=== PATIENT | female | born 2000 | race Caucasian/White ===

== ENCOUNTER 2020-09-10 08:47 | Emergency (ER) | payer OTHER, SELFPAY ==
[2020-09-10 09:10] VITALS: BP 127/75; PULSE 110; RESP 16; TEMP 36.6; O2SAT 97; BMI 43.4
--- NOTE | 2020-09-10 09:29 | ED.GENADULT ---
HPI - General Adult General Chief complaint: General Medical Stated complaint: wants test Time Seen by Provider: 09/10/20 09:11 Source: patient Mode of arrival: ambulatory History of Present Illness HPI narrative: 20 y.o. F with PMH of bipolar disorder, obesity, substance use, presenting to the ED with nausea. Nausea began last night. Eating or drinking does not affect her nausea. No vomiting with this. She is requesting a test because her last period was in June. She is sexually active. SHe has seen her [facility] prior to her period. She has not had one in two months, no vaginal bleeding or spotting. She denies chance of STD, no vaginal discharge that is copious or malodorous. She also notes increased urinary frequency, increased thrist. States she was supposed to be checked for diabetes but because of COVID she has been unable to get in with her primary care doctor. SHe has rhinorrhea when she is outside. She denies fevers, cough, CP, SOB, abd pain, vomiting, diarrhea. Is passing gas. Onset (ago): day(s) (1) Treatments prior to arrival: none Related Data Previous Rx's Medication Instructions Recorded ondansetron 4 mg PO TID PRN 3 Days #9 tab 09/10/20 Allergies Allergy/AdvReac Type Severity Reaction Status Date / Time sulfamethoxazole Allergy Intermediate HIVES WITH Verified 09/10/20 09:15 [From BACTRIM] HANDS AND FEET SWELLING trimethoprim [From BACTRIM] Allergy Intermediate HIVES WITH Verified 09/10/20 09:15 HANDS AND FEET SWELLING Sulfa (Sulfonamide Allergy Unknown Unknown Verified 09/10/20 09:15 Antibiotics) Review of Systems Constitutional: Constitutional: Denies fever(s) and Denies headache(s) Eyes: Eyes: Reports no additional eye complaints ENT: Denies headache(s) Cardiovascular: Cardiovascular: Denies chest pain and Denies dyspnea Respiratory: Respiratory: Denies dyspnea Gastrointestinal: Gastrointestinal: Denies abdominal pain, Denies diarrhea, Reports nausea and Denies vomiting Genitourinary: Genitourinary: Denies dysuria and Denies vaginal discharge Comments: urinary frequency Musculoskeletal: Musculoskeletal: Reports no additional musculoskeletal complaints Integumentary/Breasts: Skin/Breast: Denies rash Neurologic: Denies headache(s) Hematologic/Lymphatic: Hematologic/Lymphatic: Denies easy bleeding Allergic/Immunologic: Allergic/Immunologic: Reports no additional allergic/immunologic complaints PMFSH Past Medical History Medical History Bipolar 1 disorder Depression Obesity PUD (peptic ulcer disease) Substance abuse TMJ (temporomandibular joint disorder) Social History Social History (Updated 09/10/20 @ 09:35 by MYRA Robins) Substance Use Type Other:: hx of substance abuse Advance Directives: No Advance Directives Information Provided: Yes Physical Exam Vital Signs: Vital Signs: Last Vital Signs Temp 98 F 09/10/20 09:10 Pulse 110 H 09/10/20 09:10 Resp 16 09/10/20 09:10 BP 127/75 09/10/20 09:10 Pulse Ox 97 09/10/20 09:10 Body Mass Index 43.4 Const: Other: anxious General: cooperative Orientation/consciousness: patient oriented x3 HENMT: Head: Yes atraumatic Eyes: Pupils: Equal, round and reactive pupils present Neck: Neck: Yes supple Resp: Effort & Inspection: normal respiratory effort Auscultation: clear to auscultation bilaterally Cardio: Rate: regular rate Rhythm: regular rhythm GI: Other: obese Inspection: No distended Palpation (GI): Soft to palpation and nontender : General: Yes deferred Back/Spine/Pelvis: Other: normal ROM Skin: Other: warm Neuro: Other: ambulatory with steady gait General: patient oriented x3 Cranial nerves: Yes Equal, round and reactive pupils present Extrem: General: Yes full ROM Psych: Attitude: cooperative Course Course Course Narrative: No acute vomiting while in the ED. Glucose WNL. UA is negative for infection, negative. Will give [facility] follow up to discuss her amenorrhea. Will dc home with donna. Return precautions provided. Medical Decision Making MDM Narrative Medical decision making narrative: 20 y.o. F presenting to the ED for concerns of nausea that started last night, LMP 2 months ago concerned for possible . Also is concerned she is a diabetic having increased thrist and urination. VS significant for HR 110, not toxic appearing, hemodynamically stable Will plan for UA, check level. Will evaluate glucose POC. Her abdomen is soft, nontender, not peritonitic lower suspicion for intraabdominal process. NO relation to food, lower suspicion for cholecystitis. No focal RLQ tenderness to suggest acute appendicitis. No URI symptoms to suggest viral etiology. She denies pelvic complaints, will defer pelvic exam. HR elevated most likely due to her anxious state. NO signs of bacterial infection. Lab Data Labs: Lab Results 09/10/20 09/10/20 Range/Units 09:53 09:57 POC Glucose 100 (60-115) mg/dL Urine Color YELLOW Urine Appearance HAZY Urine pH 7.0 (5.0-8.0) Ur Specific [place] 1.025 (1.005-1.025) Urine Protein NEG (NEG-TRACE) MG/DL Urine Glucose (UA) NEG (NEG) MG/DL Urine Ketones NEG (NEG) MG/DL Urine Blood NEG (NEG) Urine Nitrite NEG (NEG) Ur Leukocyte Esterase NEG (NEG) Urine RBC 0-2 (0) /HPF Urine WBC 0-2 (0-4) /HPF Ur Squamous Epith Cells 1+ /LPF Urine Bacteria TRACE /LPF Urine Test NEGATIVE (NEGATIVE) Discharge Plan Discharge Patient Disposition: Home, Self-Care Instructions: Acute Nausea and Vomiting (ED) Additional Instructions: Please call the [facility] office to make an appointment to discuss your irregular menstrual period. Please return to the emergency department if your symptom worsen, increased nausea, vomiting, abdominal pain, pelvic pain, vaginal symptoms, fevers, dizziness, or any other concerning symptoms. Drink plenty of fluids to keep yourself hydrated. Prescriptions: New ondansetron 4 mg tablet,disintegrating 4 mg PO TID PRN (Reason: nausea and vomiting) 3 Days Qty: 9 RF: 0 Referrals: Chantal Engle MD [Physician] - 1 week (call to schedule an appointment to discuss your irregular bleeding )
[2020-09-10 10:08] LABS: Glucose, Whole Blood 100 mg/dL (60-115)
[2020-09-10 10:09] LABS: Glucose Urine UA NEG (NEG); Leukocyte Esterase Urine NEG (NEG); Nitrite Urine NEG (NEG); Specific Gravity - Urine 1.025 (1.005-1.025); Urine Blood NEG (NEG); Urine Ketones NEG (NEG); Urine Protein NEG (NEG-TRACE)
[2020-09-10 10:13] LABS: Appearance Urine HAZY; Color Urine YELLOW
[2020-09-10 10:14] LABS: UPreg QC Valid YES; Urine Pregnancy NEGATIVE (NEGATIVE)
[2020-09-10 10:20] LABS: Bacteria Urine TRACE /LPF; RBC Urine 0-2 /HPF (0); Squamous Epithelial Cell Urine 1+ /LPF; WBC Urine 0-2 /HPF (0-4)
--- NOTE | 2020-09-10 10:39 | PC.NURSE ---
no further c/o nausea after zofran
== END 2020-09-10 10:39 | disposition home or self-care (01) ==
PROVIDERS: Physician Assistant Medical; Emergency Provider Emergency Medicine
DX: R11.2 Nausea with vomiting, unspecified (principal); Z32.02 Encounter for pregnancy test, result negative
CPT/HCPCS: 81001; 81025; 82947; 99283

== ENCOUNTER 2020-09-17 13:10 | Emergency (ER) | payer OTHER, SELFPAY ==
--- NOTE | 2020-09-17 | XR_ITS ---
EXAMINATION: XR RIBS, LEFT CLINICAL INFORMATION: Status post fall, rib pain COMPARISON: Chest radiograph from 12/05/2018 TECHNIQUE: Frontal view of the chest and 3 views of the left ribs were obtained FINDINGS: There is no focal consolidation. There is no pneumothorax. The trachea is midline. The cardiac mediastinal silhouette is not enlarged. There is no pleural effusion. Osseous structures are unremarkable. Ribs are intact. No fractures are identified. XR/XR ribs LT min 3V w CXR1V IMPRESSION: 1. No acute cardiopulmonary process. 2. No acute visualized left-sided rib fractures.
--- NOTE | 2020-09-17 | XR_ITS ---
EXAMINATION: XR ANKLE, RIGHT CLINICAL INFORMATION: Status post fall, pain COMPARISON: Right ankle radiograph from 01/27/2020 TECHNIQUE: AP, lateral, and mortise views of the right ankle. FINDINGS: There is no acute visible fracture or dislocation. Ankle mortise is symmetric. Joint spaces and alignment are maintained. No large ankle joint effusion. Soft tissues are unremarkable. XR/XR ankle RT 2V IMPRESSION: No acute visible fracture or dislocation.
[2020-09-17 13:37] VITALS: BP 128/81; PULSE 87; RESP 18; TEMP 36.7; O2SAT 99; BMI 45.3
[2020-09-17] MEDS: Ibuprofen 600 MG TABLET PO (13:42)
--- NOTE | 2020-09-17 14:25 | ED.FALL ---
HPI - Fall General Chief Complaint: Fall Stated Complaint: fell hurt ribs Time Seen by Provider: 09/17/20 14:24 Source: patient Mode of arrival: ambulatory Limitations: no limitations History of Present Illness HPI Narrative: 20-year-old female here with a slip and fall in the bathtub hitting her left ribs on the top. Denies hitting her head or loss of consciousness. She tells me she had inversion injury to her right ankle when she fell. Pain now with weight-bearing. complaint: fall Onset (ago): hour(s) Fall from: standing Fall witnessed: no Place fall occurred: home Loss of consciousness: none Prolonged down time: no Symptoms prior to fall: none Context: tripped/slipped Location of injury: chest Location of injury - extremities: right: ankle Severity: mild Associated symptoms (after fall): denies Related Data Previous Rx's Medication Instructions Recorded ondansetron 4 mg PO TID PRN 3 Days #9 tab 09/10/20 ibuprofen 600 mg PO Q8H PRN #20 tab 09/17/20 lidocaine [Lidoderm] 1 patch TOPICAL DAILY #15 ea 09/17/20 Allergies Allergy/AdvReac Type Severity Reaction Status Date / Time sulfamethoxazole Allergy Intermediate HIVES WITH Verified 09/10/20 09:15 [From BACTRIM] HANDS AND FEET SWELLING trimethoprim [From BACTRIM] Allergy Intermediate HIVES WITH Verified 09/10/20 09:15 HANDS AND FEET SWELLING Sulfa (Sulfonamide Allergy Unknown Unknown Verified 09/10/20 09:15 Antibiotics) Review of Systems Review of Systems: Yes all other systems are reviewed and are negative Constitutional: Constitutional: Reports no additional constitutional complaints, Denies body ache(s), Denies chills, Denies fever(s), Denies headache(s) and Denies weakness Eyes: Eyes: Reports no additional eye complaints and Denies change in vision ENT: Reports system reviewed and no additional complaints, except as documented, Denies dizziness, Denies headache(s), Denies nasal congestion, Denies nasal discharge and Denies neck pain Cardiovascular: Cardiovascular: Reports no additional cardiovascular complaints, Denies chest pain, Denies leg edema and Denies dyspnea Comments: Chest wall pain Respiratory: Respiratory: Reports no additional respiratory complaints, Denies cough and Denies dyspnea Gastrointestinal: Gastrointestinal: Reports no additional gastrointestinal complaints, Denies abdominal pain, Denies diarrhea, Denies nausea and Denies vomiting Genitourinary: Genitourinary: Reports no additional female genitourinary complaints and Denies urinary incontinence Musculoskeletal: Musculoskeletal: Reports arthralgias, Reports joint swelling, Denies neck pain, Denies numbness and Denies tingling Integumentary/Breasts: Skin/Breast: Reports system reviewed and no additional complaints, except as docu and Denies rash Neurologic: Reports system reviewed and no additional complaints, except as documented, Denies Abnormal speech present, Denies dizziness, Denies headache(s), Denies numbness, Denies tingling and Denies weakness PMFSH Past Medical History Attestation statement: The following information was validated with the patient. Source: old records reviewed and nursing notes reviewed Medical History Bipolar 1 disorder Depression Obesity PUD (peptic ulcer disease) Substance abuse TMJ (temporomandibular joint disorder) Social History Social History Advance Directives: No Advance Directives Information Provided: No Physical Exam Vital Signs: Vital Signs: Last Vital Signs Temp 98.0 F 09/17/20 13:37 Pulse 87 09/17/20 13:37 Resp 18 09/17/20 13:37 BP 128/81 09/17/20 13:37 Pulse Ox 99 09/17/20 13:37 Body Mass Index 45.3 Const: General: cooperative, healthy appearing, comfortable and no acute distress Orientation/consciousness: patient oriented x3 Limitations: no limitations HENMT: Head: Yes normal to inspection Ears: hearing grossly normal bilaterally General nose exam: Normal external nose present Face and sinus: Yes normal facial exam Mouth: Normal oral and palatal mucosa present Throat: Yes posterior oropharynx normal Eyes: General: appearance normal, both eyes and all related structures Pupils: Equal, round and reactive pupils present Neck: Neck: Yes normal visual inspection Chest: Other: Left chest lateral wall has some mild tenderness. There is no crepitus or ecchymosis. Chest palpation & inspection: normal inspection of the chest Resp: Effort & Inspection: normal respiratory effort Auscultation: clear to auscultation bilaterally Cardio: Rate: regular rate Rhythm: regular rhythm Peripheral pulses: Peripheral pulses 2+ throughout GI: Inspection: Yes normal to inspection Palpation (GI): Soft to palpation and nontender Auscultation: normal bowel sounds Back/Spine/Pelvis: Thoracic/Lumbar Spine: thoracic and lumbar spine normal to inspection Skin: General skin exam: no rashes or lesions noted Neuro: General: patient oriented x3, no focal motor deficits and normal sensation to monofilament Cranial nerves: Yes Equal, round and reactive pupils present Cognition (Neuro): normal cognition Speech: No Abnormal speech present Gait exam (Neuro): Normal gait present Motor exam (neuro): 5/5 motor strength present throughout Extrem: Other: Mild tenderness the right lateral ankle. Mild swelling. No ecchymosis. Full range of motion. Neurovascularly intact distally. No ligamental laxity General: Yes normal to inspection Course Course Course Narrative: 20-year-old female here with left-sided chest wall pain and right ankle pain status post mechanical fall. Imaging done which shows no bony abnormalities. Likely contusion and ankle sprain. Patient was placed in an Aircast and given crutches for ambulation. Reviewed worrisome signs and symptoms and when to return to the emergency department. Comfortable discharge home. Procedures Orthopedic Splinting/Casting Injury #1: Side: right Lower Extremity Injury Location: ankle Lower Extremity Immobilizer: AirCast Other Orthopedic Equipment: crutches MDM - Fall Medical Records Attestation: I reviewed the patient's medical records. Lab Data Attestation: I reviewed the patient's lab results. Imaging Data Right ankle x-ray: Attestation: I personally reviewed and interpreted this imaging study as follows: Radiologist's impression: No bony abnormality Chest x-ray: Attestation: I personally reviewed and interpreted this imaging study as follows: Radiologist's impression: No bony abnormality, rib fractures, pneumothorax Discharge Plan Discharge Clinical Impression: Sprain Contusion Qualifiers: Encounter type: initial encounter Contusion area: thoracic wall Thoracic wall location detail: left Patient Disposition: Home, Self-Care Instructions: Ankle Sprain (ED), Contusion in Adults (ED) Additional Instructions: Air cast and crutches for weight-bearing Apply ice, elevate Prescriptions: New lidocaine [Lidoderm] 5 % adhesive patch,medicated 1 patch topical DAILY Qty: 15 RF: 0 ibuprofen 600 mg tablet 600 mg PO Q8H PRN (Reason: pain) Qty: 20 RF: 0 No Action ondansetron 4 mg tablet,disintegrating 4 mg PO TID PRN (Reason: nausea and vomiting) 3 Days Qty: 9 RF: 0 Referrals: Physician,Unknown [Primary Care Provider] - 2 days Interventions: ED Discharge Assessment Last Done: 09/17/20 15:16 Discharge Date/Time: 09/17/20 15:16
== END 2020-09-17 15:16 | disposition home or self-care (01) ==
PROVIDERS: Emergency Provider Internal Medicine
DX: S93.401A Sprain of unspecified ligament of right ankle, initial encounter (principal); S20.212A Contusion of left front wall of thorax, initial encounter; W16.212A Fall in (into) filled bathtub causing other injury, initial encounter; F19.10 Other psychoactive substance abuse, uncomplicated; E66.9 Obesity, unspecified; Y93.E1 Activity, personal bathing and showering; Y92.012 Bathroom of single-family (private) house as the place of occurrence of the external cause; Y99.9 Unspecified external cause status
CPT/HCPCS: 71101; 73600; 99283

== ENCOUNTER 2021-02-07 19:08 | Inpatient (IN) | payer OTHER, SELFPAY ==
[2021-02-07 19:23] VITALS: BP 131/58; PULSE 118; RESP 22; TEMP 37.5; O2SAT 97; BMI 47.2
--- NOTE | 2021-02-07 19:59 | ED_ITS ---
HPI - Anxiety General Chief Complaint: Anxiety Stated Complaint: SI, ANXIETY Time Seen by Provider: 02/08/21 01:46 Source: patient Mode of arrival: ambulatory Limitations: no limitations History of Present Illness HPI narrative: Patient presents to the ED for severe anxiety. Patient states no relief with Atarax. Patient states she cannot get in touch with her psychiatrist and psychiatry not given any more meds for anxiety. Patient states not able to function because of anxiety. Patient is not suicidal homicidal. complaint: anxiety Related Data Home Medications Medication Instructions Recorded Confirmed gabapentin 1 cap PO TID PRN 02/07/21 02/07/21 hydroxyzine HCl 1 tab PO DAILY PRN 02/07/21 02/07/21 oxcarbazepine 1 tab PO BID 02/07/21 02/07/21 quetiapine 1 tab PO BEDTIME 02/07/21 02/07/21 Allergies Allergy/AdvReac Type Severity Reaction Status Date / Time sulfamethoxazole Allergy Intermediate HIVES WITH Verified 09/10/20 09:15 [From BACTRIM] HANDS AND FEET SWELLING trimethoprim [From BACTRIM] Allergy Intermediate HIVES WITH Verified 09/10/20 09:15 HANDS AND FEET SWELLING Sulfa (Sulfonamide Allergy Unknown Hives Verified 02/07/21 19:48 Antibiotics) Review of Systems Review of Systems: Yes all other systems are reviewed and are negative Constitutional: Constitutional: Reports as per HPI and Reports no additional constitutional complaints Eyes: Eyes: Reports as per HPI and Reports no additional eye complaints ENT: Reports system reviewed and no additional complaints, except as documented and Reports as per HPI Cardiovascular: Cardiovascular: Reports as per HPI and Reports no additional cardiovascular complaints Respiratory: Respiratory: Reports as per HPI and Reports no additional respiratory complaints Gastrointestinal: Gastrointestinal: Reports as per HPI and Reports no additional gastrointestinal complaints Genitourinary: Genitourinary: Reports no additional female genitourinary complaints and Reports as per HPI Musculoskeletal: Musculoskeletal: Reports no additional musculoskeletal complaints and Reports as per HPI Neurologic: Reports system reviewed and no additional complaints, except as documented and Reports as per HPI Psychiatric: Psychiatric: Reports no additional psychiatric complaints, Reports as per HPI and Reports anxiety PMFSH Past Medical History Medical History Bipolar 1 disorder Depression Obesity PUD (peptic ulcer disease) Substance abuse TMJ (temporomandibular joint disorder) Social History Social History Advance Directives: No Advance Directives Information Provided: No Patient : No Physical Exam Vital Signs: Vital Signs: Last Vital Signs Temp 97.6 F 02/08/21 01:00 Pulse 98 02/08/21 01:00 Resp 18 02/08/21 01:00 BP 111/63 02/08/21 01:00 Pulse Ox 98 02/08/21 01:00 Body Mass Index 47.2 Const: General: cooperative, healthy appearing, comfortable, no acute distress, well developed, alert and awake Orientation/consciousness: patient oriented x3 HENMT: Head: Yes normal to inspection, Yes No palpable skull fracture present, Yes normocephalic and Yes atraumatic Eyes: General: appearance normal, both eyes and all related structures Neck: Neck: Yes normal visual inspection, Yes full ROM, Yes no lymphadenopathy, Yes no meningeal signs, Yes trachea midline, Yes supple and No tender Chest: Chest palpation & inspection: normal inspection of the chest and normal palpation of entire chest wall Resp: Effort & Inspection: normal respiratory effort and able to speak in complete sentences Cardio: Jugular venous distension: no JVD Heart sounds: S1 normal heart sound present and S2 normal heart sound present GI: Inspection: Yes normal to inspection and No abdominal wall ecchymosis Palpation (GI): Soft to palpation, not firm, nontender, no guarding and not rigid : General: No CVA tenderness and Yes no CVA tenderness Back/Spine/Pelvis: Back: no CVA tenderness, No CVA tenderness and No back tenderness Skin: General skin exam: no rashes or lesions noted and elasticity normal Neuro: General: patient oriented x3, gait normal, no meningeal signs and CN's II-XI intact bilaterally Cranial nerves: Yes CN's II-XII intact bilaterally Extrem: General: Yes normal to inspection and Yes full ROM Psych: Other: Severe anxiety. Current Appearance: grossly normal, well kempt and not disheveled Course Course Course Narrative: Patient had basic labs and did have [facility] evaluation. Reevaluation(s) Reevaluation #1: Labs came back. Patient awaiting behavior network evaluation. MDM - Anxiety MDM Narrative Medical decision making narrative: Anxiety Lab Data Result diagrams: 02/07/21 20:02 02/07/21 20:02 Labs: Lab Results 02/07/21 02/07/21 02/07/21 Range/Units 20:01 20:01 20:01 WBC (4.8-10.8) X10*3/uL RBC (4.20-5.50) X10*6/uL Hgb (12.0-16.0) g/dl Hct (37-47) % MCV (80-98) fL MCH (27.0-33.0) pg MCHC (31.0-35.0) g/dl RDW (11.0-16.0) % Plt Count (160-400) X10*3/uL MPV (9.4-12.3) fL Immature Gran % (Auto) (0.0-0.4) % Neut % (Auto) (45-73) % Lymph % (Auto) (20-40) % [place] % (Auto) (2-11) % Eos % (Auto) (0-4) % Baso % (Auto) (0-2) % Lymph # (Auto) (1.2-4.9) X10*3/uL [place] # (Auto) (0.1-1.2) X10*3/uL Eos # (Auto) (0.0-0.4) X10*3/uL Baso # (Auto) (0.0-0.2) X10*3/uL Abs Immat Gran (auto) (0.00-0.03) X10*3/uL Absolute Neuts (auto) (2.0-8.3) X10*3/uL Absolute Nucleated RBC (0.0-0.012) X10*3/uL Nucleated RBC % (auto) (0.0-0.2) /100WBC Sodium (135-145) mmol/L Potassium (3.3-5.1) mmol/L Chloride (96-108) mmol/L Carbon Dioxide (22-29) mmol/L Anion Gap (12-20) BUN (9-16) mg/dL Creatinine (0.5-1.4) mg/dL Estim Creat Clear Calc Estimated GFR Random Glucose (60-115) mg/dL Calcium (8.4-10.2) mg/dL Urine Color Urine Appearance Urine pH (5.0-8.0) Ur Specific [place] (1.005-1.025) Urine Protein (NEG-TRACE) MG/DL Urine Glucose (UA) (NEG) MG/DL Urine Ketones (NEG) MG/DL Urine Blood (NEG) Urine Nitrite (NEG) Ur Leukocyte Esterase (NEG) Urine RBC (0) /HPF Urine WBC (0-4) /HPF Ur Squamous Epith Cells /LPF Urine Bacteria /LPF Urine Test NEGATIVE (NEGATIVE) Urine Opiates Screen Not Detected (Not Detect) Ur Barbiturates Screen Not Detected (Not Detect) Ur Phencyclidine Scrn Not Detected (Not Detect) Ur Amphetamines Screen Not Detected (Not Detect) U Benzodiazepines Scrn Not Detected (Not Detect) Urine Cocaine Screen Not Detected (Not Detect) U Marijuana (THC) Screen Not Detected (Not Detect) COVID-19 (SIVA) Negative (Negative) COVID-19 Clin Com See Note 02/07/21 02/07/21 02/07/21 Range/Units 20:02 20:02 20:02 WBC 15.1 H (4.8-10.8) X10*3/uL RBC 4.92 (4.20-5.50) X10*6/uL Hgb 14.0 (12.0-16.0) g/dl Hct 42.6 (37-47) % MCV 86.6 (80-98) fL MCH 28.5 (27.0-33.0) pg MCHC 32.9 (31.0-35.0) g/dl RDW 12.4 (11.0-16.0) % Plt Count 339 (160-400) X10*3/uL MPV 9.1 L (9.4-12.3) fL Immature Gran % (Auto) 0.3 (0.0-0.4) % Neut % (Auto) 64.6 (45-73) % Lymph % (Auto) 27.6 (20-40) % [place] % (Auto) 6.6 (2-11) % Eos % (Auto) 0.4 (0-4) % Baso % (Auto) 0.5 (0-2) % Lymph # (Auto) 4.2 (1.2-4.9) X10*3/uL [place] # (Auto) 1.0 (0.1-1.2) X10*3/uL Eos # (Auto) 0.1 (0.0-0.4) X10*3/uL Baso # (Auto) 0.1 (0.0-0.2) X10*3/uL Abs Immat Gran (auto) 0.04 H (0.00-0.03) X10*3/uL Absolute Neuts (auto) 9.8 H (2.0-8.3) X10*3/uL Absolute Nucleated RBC 0.000 (0.0-0.012) X10*3/uL Nucleated RBC % (auto) 0.0 (0.0-0.2) /100WBC Sodium 140 (135-145) mmol/L Potassium 4.2 (3.3-5.1) mmol/L Chloride 107 (96-108) mmol/L Carbon Dioxide 21 L (22-29) mmol/L Anion Gap 16 (12-20) BUN 11 (9-16) mg/dL Creatinine 0.86 (0.5-1.4) mg/dL Estim Creat Clear Calc 119.9 Estimated GFR > 60 Random Glucose 91 (60-115) mg/dL Calcium 9.4 (8.4-10.2) mg/dL Urine Color YELLOW Urine Appearance HAZY Urine pH 6.0 (5.0-8.0) Ur Specific [place] 1.025 (1.005-1.025) Urine Protein TRACE (NEG-TRACE) MG/DL Urine Glucose (UA) NEG (NEG) MG/DL Urine Ketones 5 (NEG) MG/DL Urine Blood NEG (NEG) Urine Nitrite NEG (NEG) Ur Leukocyte Esterase 2+ H (NEG) Urine RBC 0 (0) /HPF Urine WBC 1-4 (0-4) /HPF Ur Squamous Epith Cells 2+ /LPF Urine Bacteria 2+ /LPF Urine Test (NEGATIVE) Urine Opiates Screen (Not Detect) Ur Barbiturates Screen (Not Detect) Ur Phencyclidine Scrn (Not Detect) Ur Amphetamines Screen (Not Detect) U Benzodiazepines Scrn (Not Detect) Urine Cocaine Screen (Not Detect) U Marijuana (THC) Screen (Not Detect) COVID-19 (SIVA) (Negative) COVID-19 Clin Com Discharge Plan Discharge Clinical Impression: Acute anxiety Prescriptions: No Action gabapentin 400 mg capsule 1 cap PO TID PRN (Reason: anxiety) RF: 0 hydroxyzine HCl 50 mg tablet 1 tab PO DAILY PRN (Reason: anxiety) RF: 0 oxcarbazepine 300 mg tablet 1 tab PO BID RF: 0 quetiapine 50 mg tablet 1 tab PO BEDTIME RF: 0
[2021-02-07 20:12] LABS: MANUAL DIFF FLAG NO
[2021-02-07] MEDS: LORazepam 1 MG TABLET 2 MG PO (20:14)
[2021-02-07 20:16] LABS: Glucose Urine UA NEG (NEG); Leukocyte Esterase Urine 2+ (NEG); Nitrite Urine NEG (NEG); Specific Gravity - Urine 1.025 (1.005-1.025); UACC Culture Trigger YES; Urine Blood NEG (NEG); Urine Ketones 5 MG/DL (NEG); Urine Protein TRACE MG/DL (NEG-TRACE)
[2021-02-07 20:17] LABS: Appearance Urine HAZY; Color Urine YELLOW
[2021-02-07 20:18] LABS: UPreg QC Valid YES; Urine Pregnancy NEGATIVE (NEGATIVE)
[2021-02-07 20:18] LABS: Basophils Absolute Auto 0.1 X10*3/uL (0.0-0.2); Basophils Percent Auto 0.5 % (0-2); Eosinophils Absolute Auto 0.1 X10*3/uL (0.0-0.4); Eosinophils Percent Auto 0.4 % (0-4); Hematocrit 42.6 % (37-47); Imm Gran Abs Auto 0.04 X10*3/uL (0.00-0.03); Imm Gran Pct Auto 0.3 % (0.0-0.4); Lymphocytes Absolute Auto 4.2 X10*3/uL (1.2-4.9); Lymphocytes Percent Auto 27.6 % (20-40); Mean Corpuscular HGB Conc 32.9 g/dl (31.0-35.0); Mean Corpuscular Hemoglobin 28.5 pg (27.0-33.0); Mean Corpuscular Volume 86.6 fL (80-98); Mean Platelet Volume 9.1 fL (9.4-12.3); Monocytes Percent Auto 6.6 % (2-11); Neutrophils Absolute Auto 9.8 X10*3/uL (2.0-8.3); Neutrophils Percent Auto 64.6 % (45-73); Platelet Count 339 X10*3/uL (160-400); Red Blood Count 4.92 X10*6/uL (4.20-5.50); Red Cell Distribution Width 12.4 % (11.0-16.0); White Blood Count 15.1 X10*3/uL (4.8-10.8)
[2021-02-07 20:22] LABS: Bacteria Urine 2+ /LPF; RBC Urine 0 /HPF (0); Squamous Epithelial Cell Urine 2+ /LPF; UACC CULT YES
[2021-02-07 20:28] LABS: COVID-19 Test Negative (Negative)
[2021-02-07 20:40] LABS: Anion Gap 16 (12-20); Blood Urea Nitrogen 11 mg/dL (9-16); Calcium 9.4 mg/dL (8.4-10.2); Carbon Dioxide 21 mmol/L (22-29); Chloride 107 mmol/L (96-108); Creatinine Clr Calc Pharmacy 119.9; Estimated Glomerular Filt Rate > 60; Glucose Random 91 mg/dL (60-115); Potassium 4.2 mmol/L (3.3-5.1); Sodium 140 mmol/L (135-145)
[2021-02-07 20:41] LABS: Amphetamine Screen Urine Not Detected (Not Detect); Barbiturates, Urine Not Detected (Not Detect); Benzodiazepines Screen Urine Not Detected (Not Detect); Cannabinoid Screen Urine Not Detected (Not Detect); Cocaine Screen Urine Not Detected (Not Detect); Opiate Screen Urine Not Detected (Not Detect); Phencyclidine Screen Urine Not Detected (Not Detect)
[2021-02-08 01:00] VITALS: BP 111/63; PULSE 98; RESP 18; TEMP 36.4; O2SAT 98
[2021-02-08] MEDS: QUEtiapine Fumarate 50 MG TABLET PO ×2 (01:54→22:01)
[2021-02-08] MEDS: OXcarbazepine 300 MG TABLET PO ×3 (01:54→22:01)
[2021-02-08] MEDS: hydrOXYzine HCL 50 MG TABLET PO (01:54)
--- NOTE | 2021-02-08 06:59 | PC.NURSE ---
patient appears to be at rest at present, in no distress, even labored breaths.recived report from prior RN
[2021-02-08 16:39] VITALS: BP 122/54; PULSE 99; RESP 16; TEMP 37; O2SAT 98
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
[2021-02-08 19:00] VITALS: BP 130/75; PULSE 98; RESP 18; O2SAT 98
[2021-02-08] MEDS: Gabapentin 400 MG CAPSULE PO (22:01)
[2021-02-08 22:04] VITALS: BP 103/54; PULSE 68; TEMP 36.4; O2SAT 98
[2021-02-09 06:00] VITALS: BP 85/50; PULSE 72; RESP 16; O2SAT 97
[2021-02-09 07:44] LABS: Cholesterol 182 mg/dL; HDL Cholesterol 30 mg/dL; LDL Cholesterol Calculated 122 mg/dl; Triglycerides 150 mg/dL
[2021-02-09] MEDS: OXcarbazepine 300 MG TABLET PO ×2 (07:48→21:40)
[2021-02-09] MEDS: Gabapentin 400 MG CAPSULE PO ×2 (07:48→21:39)
[2021-02-09] MEDS: Nicotine 14 MG PATCH.TD24 TRANSDERMA (07:49)
[2021-02-09 08:33] LABS: Folate 10.4 ng/mL (> or = 4.0); Vitamin B12 581 pg/mL (200-900)
[2021-02-09 08:38] LABS: Estimated Average Glucose 105 mg/dL; Hemoglobin A1c % 5.3 %
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
[2021-02-09] MEDS: QUEtiapine Fumarate 50 MG TABLET PO (21:39)
[2021-02-09] MEDS: LORazepam 0.5 MG TABLET PO (21:39)
[2021-02-10 06:00] VITALS: BP 119/58; PULSE 89; RESP 18; TEMP 36.8; O2SAT 96
[2021-02-10] MEDS: OXcarbazepine 300 MG TABLET PO ×2 (08:45→21:55)
[2021-02-10] MEDS: LORazepam 0.5 MG TABLET PO ×3 (08:45→21:57)
[2021-02-10] MEDS: Gabapentin 400 MG CAPSULE PO ×3 (08:45→21:55)
[2021-02-10] MEDS: Nicotine 14 MG PATCH.TD24 TRANSDERMA (08:45)
[2021-02-10] MEDS: Acetaminophen 325 MG TABLET 650 MG PO ×2 (10:36→21:55)
[2021-02-10 18:00] VITALS: BP 121/61; PULSE 84; RESP 16; TEMP 37.1; O2SAT 97
[2021-02-10] MEDS: QUEtiapine Fumarate 50 MG TABLET PO (21:55)
[2021-02-11 06:00] VITALS: BP 112/76; PULSE 88; RESP 16; TEMP 36.9; O2SAT 97
[2021-02-11] MEDS: Gabapentin 400 MG CAPSULE PO ×3 (09:23→21:53)
[2021-02-11] MEDS: LORazepam 0.5 MG TABLET PO ×3 (09:24→21:54)
[2021-02-11] MEDS: Nicotine 14 MG PATCH.TD24 TRANSDERMA (09:24)
[2021-02-11] MEDS: OXcarbazepine 300 MG TABLET PO ×2 (09:24→21:54)
[2021-02-11] MEDS: Acetaminophen 325 MG TABLET 650 MG PO ×2 (14:05→21:52)
--- NOTE | 2021-02-11 21:00 | HO.PSYCHPN ---
Subjective Subjective Date of Service: 02/11/21 Reason For Visit: SI Subjective Notes: Conditional Voluntary Healthcare Proxy: No Guardianship: No Medical Problems Affecting Mental Status: No Interim History: Reports regime to be helpful in anxiety mgt. Reports weak ankles/knees-knees give out at times-she has a brace but needs an order to wear this. Discussed PT eval which she agrees with Medication Compliance: Yes Side effects from medications: No Attending Groups: Yes Review of Systems Musculoskeletal: Reports joint swelling and Reports other (reports weakness in ankles and knees with edema at times, pins and needles) Psychiatric: Reports anxiety, Reports depression and Reports panic attacks Mental Status Exam Mental Status Exam Patient Appearance: Appropriate Patient Orientation: Person, Place, Time and Situation Level of Consciousness: Awake and Alert Patient Behavior: Appropriate, Talkative and Cooperative Mood Description: Anxious Affect Description: Anxious Patient Cognition Impaired: No Ability to Follow Directions: Good Speech Pattern: Spontaneous Speech Memory Description: Intact Hallucinations: None Delusions: Not Present Thought Process: Intact Thought Content: positive for Intact Depressive Symptoms: Increased Anxiety, Muscle Tension, Muscle Pain and Loss of Energy Judgement: Fair Diagnostics Vital Signs (24Hr): Vital Signs - 24 hr 02/11/21 06:00 Temperature 98.4 F Pulse Rate 88 Respiratory Rate 16 Blood Pressure 112/76 Pulse Oximetry 97 Body Mass Index 47.2 Labs Results: 02/07/21 20:02 02/07/21 20:02 Medications Medications Current Medications Generic Name Dose Route Start Last Admin Trade Name Freq PRN Reason Stop Dose Admin Acetaminophen 650 mg 02/08/21 15:29 02/11/21 14:05 Acetaminophen 325 Mg Tablet PO 650 mg Q6H PRN Administration Headache/Pain Mild Scale (1-3) Al Hydroxide/Mg Hydroxide 30 ml 02/08/21 15:29 Magnesium Hydrox/Alum Hydrox 30 Ml Oral.Susp PO Q6H PRN Heartburn/Nausea Gabapentin 400 mg 02/09/21 21:00 02/11/21 14:06 Gabapentin 400 Mg Capsule PO 400 mg TID ERIK Administration Hydroxyzine HCl 50 mg 02/09/21 16:12 Hydroxyzine Hcl 50 Mg Tablet PO Q6H PRN anxiety Lorazepam 0.5 mg 02/09/21 21:00 02/11/21 14:06 Lorazepam 0.5 Mg Tablet PO 0.5 mg TID ERIK Administration Magnesium Hydroxide 30 ml 02/08/21 15:27 Milk Of Magnesia 30 Ml Oral.Susp PO DAILY PRN Constipation Nicotine 14 mg 02/08/21 17:50 02/11/21 09:24 Nicotine 14 Mg Patch.Td24 TRANSDERMA 14 mg DAILY ERIK Administration Oxcarbazepine 300 mg 02/08/21 02:00 02/11/21 09:24 Oxcarbazepine 300 Mg Tablet PO 300 mg BID ERIK Administration Quetiapine Fumarate 50 mg 02/08/21 02:00 02/10/21 21:55 Quetiapine Fumarate 50 Mg Tablet PO 50 mg BEDTIME ERIK Administration Quetiapine Fumarate 50 mg 02/09/21 16:17 Quetiapine Fumarate 50 Mg Tablet PO Q6H PRN agitation Trazodone HCl 50 mg 02/08/21 15:27 Trazodone Hcl 50 Mg Tablet PO BEDTIME PRN Insomnia Allergies Allergies Allergy/AdvReac Type Severity Reaction Status Date / Time sulfamethoxazole Allergy Intermediate HIVES WITH Verified 09/10/20 09:15 [From BACTRIM] HANDS AND FEET SWELLING trimethoprim [From BACTRIM] Allergy Intermediate HIVES WITH Verified 09/10/20 09:15 HANDS AND FEET SWELLING Sulfa (Sulfonamide Allergy Unknown Hives Verified 02/07/21 19:48 Antibiotics) Assessment & Plan Assessment & Plan (1) Chronic post-traumatic stress disorder (PTSD): Status: Acute Code(s): F43.12 - Post-traumatic stress disorder, chronic Assessment and Plan: 1. we discussed risks, benefits and alternative treatment options. Pt agrees to start low dose ativan TID, does understand that OP has to agree to continue. She reports other alternative such as vistaril, clonidine, prazosin for break through anxiety not helpful. She reports antidepressants have made her more agitated. Will obtain collateral infor from her provider to further adjust medications. 2. Pt interested in DBT programming 3. coordination of care. 4. PT for knee/ankle sx and to continue brace. (2) Bipolar II disorder major depressive with atypical features: Status: Acute Code(s): F31.81 - Bipolar II disorder Assessment and Plan: 1. continue trileptal and gabapentin for mood stabilization. Greater than 50% of the session was spent on counseling and/or coordination of care Reason for contiued inpatient stay Substantial Risk for: rapid decompensation
[2021-02-11] MEDS: QUEtiapine Fumarate 50 MG TABLET PO (21:53)
[2021-02-11 21:58] VITALS: BP 127/78; PULSE 101; TEMP 36.8; O2SAT 96
[2021-02-12 08:00] VITALS: BP 127/70; PULSE 95; RESP 16; TEMP 37.1; O2SAT 98
[2021-02-12] MEDS: Nicotine 14 MG PATCH.TD24 TRANSDERMA (10:14)
[2021-02-12] MEDS: LORazepam 0.5 MG TABLET PO ×3 (10:14→22:04)
[2021-02-12] MEDS: OXcarbazepine 300 MG TABLET PO ×2 (10:15→22:04)
[2021-02-12] MEDS: Gabapentin 400 MG CAPSULE PO ×3 (10:15→22:03)
[2021-02-12] MEDS: Acetaminophen 325 MG TABLET 650 MG PO (12:00)
[2021-02-12 20:04] VITALS: BP 121/66; PULSE 91; TEMP 36.8; O2SAT 97
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
[2021-02-12] MEDS: QUEtiapine Fumarate 50 MG TABLET PO (22:04)
[2021-02-13 06:00] VITALS: BP 104/59; PULSE 85; RESP 18; TEMP 36.4; O2SAT 98
--- NOTE | 2021-02-13 07:25 | HO.PSYCHPN ---
Subjective Subjective Date of Service: 02/14/21 Reason For Visit: SI Interim History: Ana reports that Saturday was difficult in that her sister graduated and she couldn't be part of it because she was in unit. She reports overall she is less depressed, less anxious. She denies recent panic attacks. She denies SI/HI. She has been visible in the unit, attends assigned groups. No self injurious behaviors. Taking medications as prescribed. Thinks current medications are helping. Review of Systems Review of Systems Yes all other systems are reviewed and are negative Constitutional: Reports as per HPI and Reports no additional constitutional complaints Eyes: Reports as per HPI and Reports no additional eye complaints Reports system reviewed and no additional complaints, except as documented and Reports as per HPI Cardiovascular: Reports as per HPI, Reports no additional cardiovascular complaints, Denies chest pain, Denies lightheadedness and Denies dyspnea Respiratory: Reports as per HPI, Reports no additional respiratory complaints and Denies dyspnea Gastrointestinal: Reports as per HPI, Reports no additional gastrointestinal complaints, Denies fecal incontinence, Denies diarrhea, Denies loose stools and Denies vomiting Musculoskeletal: Reports no additional musculoskeletal complaints, Reports as per HPI, Reports abnormal gait, Reports arthralgias, Reports joint swelling, Reports limited range of motion and Reports other (edema) Reports system reviewed and no additional complaints, except as documented, Reports as per HPI and Reports abnormal gait Psychiatric: Reports no additional psychiatric complaints, Reports as per HPI, Reports anxiety, Reports depression and Reports panic attacks Mental Status Exam Mental Status Exam Narrative: Appearance: casually groomed, fair hygiene, in NAD Behavior: calm, cooperative Psychomotor: no agitation or retardation noted Speech: clear, normal rate/rhythm/volume, spontaneous TP: linear TC: no signs of psychosis, more future oriented and optimistic Mood: better Affect:does brighten at times, but congruent SI:passive, denies any plan or intent HI:denies AH/VH:none Delusions:none Insight/judgment:fair x 2. Memory/cog: alert, oriented x 3. grossly intact to conversational testing. Diagnostics Vital Signs (24Hr): Vital Signs - 24 hr 02/13/21 18:00 Temperature 98.6 F Pulse Rate 101 H Respiratory Rate 24 H Blood Pressure 133/76 Pulse Oximetry 98 Body Mass Index 47.2 Labs Results: 02/07/21 20:02 02/07/21 20:02 Medications Medications Current Medications Generic Name Dose Route Start Last Admin Trade Name Freq PRN Reason Stop Dose Admin Acetaminophen 650 mg 02/08/21 15:29 02/13/21 09:13 Acetaminophen 325 Mg Tablet PO 650 mg Q6H PRN Administration Headache/Pain Mild Scale (1-3) Al Hydroxide/Mg Hydroxide 30 ml 02/08/21 15:29 Magnesium Hydrox/Alum Hydrox 30 Ml Oral.Susp PO Q6H PRN Heartburn/Nausea Gabapentin 400 mg 02/09/21 21:00 02/13/21 21:17 Gabapentin 400 Mg Capsule PO 400 mg TID ERIK Administration Hydroxyzine HCl 50 mg 02/09/21 16:12 Hydroxyzine Hcl 50 Mg Tablet PO Q6H PRN anxiety Lorazepam 0.5 mg 02/09/21 21:00 02/13/21 21:17 Lorazepam 0.5 Mg Tablet PO 0.5 mg TID ERIK Administration Magnesium Hydroxide 30 ml 02/08/21 15:27 Milk Of Magnesia 30 Ml Oral.Susp PO DAILY PRN Constipation Nicotine 14 mg 02/08/21 17:50 02/13/21 09:13 Nicotine 14 Mg Patch.Td24 TRANSDERMA 14 mg DAILY ERIK Administration Oxcarbazepine 300 mg 02/08/21 02:00 02/13/21 21:17 Oxcarbazepine 300 Mg Tablet PO 300 mg BID ERIK Administration Quetiapine Fumarate 50 mg 02/08/21 02:00 02/13/21 21:17 Quetiapine Fumarate 50 Mg Tablet PO 50 mg BEDTIME ERIK Administration Quetiapine Fumarate 50 mg 02/09/21 16:17 Quetiapine Fumarate 50 Mg Tablet PO Q6H PRN agitation Trazodone HCl 50 mg 02/08/21 15:27 Trazodone Hcl 50 Mg Tablet PO BEDTIME PRN Insomnia Allergies Allergies Allergy/AdvReac Type Severity Reaction Status Date / Time sulfamethoxazole Allergy Intermediate HIVES WITH Verified 09/10/20 09:15 [From BACTRIM] HANDS AND FEET SWELLING trimethoprim [From BACTRIM] Allergy Intermediate HIVES WITH Verified 09/10/20 09:15 HANDS AND FEET SWELLING Sulfa (Sulfonamide Allergy Unknown Hives Verified 02/07/21 19:48 Antibiotics) Assessment & Plan Assessment & Plan (1) Chronic post-traumatic stress disorder (PTSD): Status: Acute Code(s): F43.12 - Post-traumatic stress disorder, chronic Assessment and Plan: 1. we discussed risks, benefits and alternative treatment options. Pt agrees to start low dose ativan TID, does understand that OP has to agree to continue. She reports other alternative such as vistaril, clonidine, prazosin for break through anxiety not helpful. She reports antidepressants have made her more agitated. Will obtain collateral infor from her provider to further adjust medications. 2. Pt interested in DBT programming 3. coordination of care. 4. PT for knee/ankle sx and to continue brace. (2) Bipolar II disorder major depressive with atypical features: Status: Acute Code(s): F31.81 - Bipolar II disorder Assessment and Plan: 1. continue trileptal and gabapentin for mood stabilization. Greater than 50% of the session was spent on counseling and/or coordination of care Reason for contiued inpatient stay Substantial Risk for: stable for discharge
[2021-02-13] MEDS: Nicotine 14 MG PATCH.TD24 TRANSDERMA (09:13)
[2021-02-13] MEDS: Acetaminophen 325 MG TABLET 650 MG PO (09:13)
[2021-02-13] MEDS: OXcarbazepine 300 MG TABLET PO ×2 (09:14→21:17)
[2021-02-13] MEDS: Gabapentin 400 MG CAPSULE PO ×3 (09:14→21:17)
[2021-02-13] MEDS: LORazepam 0.5 MG TABLET PO ×3 (09:14→21:17)
[2021-02-13 18:00] VITALS: BP 133/76; PULSE 101; RESP 24; TEMP 37; O2SAT 98
[2021-02-13] MEDS: QUEtiapine Fumarate 50 MG TABLET PO (21:17)
[2021-02-14] MEDS: Gabapentin 400 MG CAPSULE PO ×3 (08:52→22:12)
[2021-02-14] MEDS: Nicotine 14 MG PATCH.TD24 TRANSDERMA (08:52)
[2021-02-14] MEDS: LORazepam 0.5 MG TABLET PO ×3 (08:52→22:12)
[2021-02-14] MEDS: OXcarbazepine 300 MG TABLET PO ×2 (08:53→22:12)
[2021-02-14 10:54] VITALS: BP 110/67; PULSE 92; O2SAT 95
--- NOTE | 2021-02-14 17:07 | HO.PSYCHPN ---
Subjective Subjective Date of Service: 02/14/21 Reason For Visit: SI Interim History: Ana reports that she had a very good day. She has been visible in the unit and social with select peers. She reports decreased symptoms of depression. She also reports decreased symptoms of anxiety. She denies SI/HI. Her affect is much brighter and she is future oriented looking forward to return home. No behavioral concerns. Review of Systems Review of Systems Yes all other systems are reviewed and are negative Constitutional: Reports as per HPI and Reports no additional constitutional complaints Eyes: Reports as per HPI and Reports no additional eye complaints Reports system reviewed and no additional complaints, except as documented and Reports as per HPI Cardiovascular: Reports as per HPI, Reports no additional cardiovascular complaints, Denies chest pain, Denies lightheadedness and Denies dyspnea Respiratory: Reports as per HPI, Reports no additional respiratory complaints and Denies dyspnea Gastrointestinal: Reports as per HPI, Reports no additional gastrointestinal complaints, Denies fecal incontinence, Denies diarrhea, Denies loose stools and Denies vomiting Musculoskeletal: Reports no additional musculoskeletal complaints, Reports as per HPI, Reports abnormal gait, Reports arthralgias, Reports joint swelling, Reports limited range of motion and Reports other (edema) Reports system reviewed and no additional complaints, except as documented, Reports as per HPI and Reports abnormal gait Psychiatric: Reports no additional psychiatric complaints, Reports as per HPI, Reports anxiety, Reports depression and Reports panic attacks Mental Status Exam Mental Status Exam Narrative: Appearance: casually groomed, fair hygiene, in NAD Behavior: calm, cooperative Psychomotor: no agitation or retardation noted Speech: clear, normal rate/rhythm/volume, spontaneous TP: linear TC: no signs of psychosis, more future oriented and optimistic Mood: better Affect:bright, non labile, congruent SI:passive, denies any plan or intent HI:denies AH/VH:none Delusions:none Insight/judgment:fair x 2. Memory/cog: alert, oriented x 3. grossly intact to conversational testing. Diagnostics Vital Signs (24Hr): Vital Signs - 24 hr 02/13/21 18:00 02/14/21 10:54 Temperature 98.6 F Pulse Rate 101 H 92 Respiratory Rate 24 H Blood Pressure 133/76 110/67 Pulse Oximetry 98 95 Body Mass Index 47.2 Labs Results: 02/07/21 20:02 02/07/21 20:02 Medications Medications Current Medications Generic Name Dose Route Start Last Admin Trade Name Freq PRN Reason Stop Dose Admin Acetaminophen 650 mg 02/08/21 15:29 02/13/21 09:13 Acetaminophen 325 Mg Tablet PO 650 mg Q6H PRN Administration Headache/Pain Mild Scale (1-3) Al Hydroxide/Mg Hydroxide 30 ml 02/08/21 15:29 Magnesium Hydrox/Alum Hydrox 30 Ml Oral.Susp PO Q6H PRN Heartburn/Nausea Gabapentin 400 mg 02/09/21 21:00 02/14/21 14:45 Gabapentin 400 Mg Capsule PO 400 mg TID ERIK Administration Hydroxyzine HCl 50 mg 02/09/21 16:12 Hydroxyzine Hcl 50 Mg Tablet PO Q6H PRN anxiety Lorazepam 0.5 mg 02/09/21 21:00 02/14/21 14:45 Lorazepam 0.5 Mg Tablet PO 0.5 mg TID ERIK Administration Magnesium Hydroxide 30 ml 02/08/21 15:27 Milk Of Magnesia 30 Ml Oral.Susp PO DAILY PRN Constipation Nicotine 14 mg 02/08/21 17:50 02/14/21 08:52 Nicotine 14 Mg Patch.Td24 TRANSDERMA 14 mg DAILY ERIK Administration Oxcarbazepine 300 mg 02/08/21 02:00 02/14/21 08:53 Oxcarbazepine 300 Mg Tablet PO 300 mg BID ERIK Administration Quetiapine Fumarate 50 mg 02/08/21 02:00 02/13/21 21:17 Quetiapine Fumarate 50 Mg Tablet PO 50 mg BEDTIME ERIK Administration Quetiapine Fumarate 50 mg 02/09/21 16:17 Quetiapine Fumarate 50 Mg Tablet PO Q6H PRN agitation Trazodone HCl 50 mg 02/08/21 15:27 Trazodone Hcl 50 Mg Tablet PO BEDTIME PRN Insomnia Allergies Allergies Allergy/AdvReac Type Severity Reaction Status Date / Time sulfamethoxazole Allergy Intermediate HIVES WITH Verified 09/10/20 09:15 [From BACTRIM] HANDS AND FEET SWELLING trimethoprim [From BACTRIM] Allergy Intermediate HIVES WITH Verified 09/10/20 09:15 HANDS AND FEET SWELLING Sulfa (Sulfonamide Allergy Unknown Hives Verified 02/07/21 19:48 Antibiotics) Assessment & Plan Assessment & Plan (1) Chronic post-traumatic stress disorder (PTSD): Status: Acute Code(s): F43.12 - Post-traumatic stress disorder, chronic Assessment and Plan: 1. we discussed risks, benefits and alternative treatment options. Pt agrees to start low dose ativan TID, does understand that OP has to agree to continue. She reports other alternative such as vistaril, clonidine, prazosin for break through anxiety not helpful. She reports antidepressants have made her more agitated. Will obtain collateral infor from her provider to further adjust medications. 2. Pt interested in DBT programming 3. coordination of care. 4. PT for knee/ankle sx and to continue brace. (2) Bipolar II disorder major depressive with atypical features: Status: Acute Code(s): F31.81 - Bipolar II disorder Assessment and Plan: 1. continue trileptal and gabapentin for mood stabilization. Greater than 50% of the session was spent on counseling and/or coordination of care Reason for contiued inpatient stay Substantial Risk for: stable for discharge
[2021-02-14 17:58] VITALS: BP 125/60; PULSE 93; O2SAT 99
[2021-02-14 18:18] LABS: Glucose Urine UA NEG (NEG); Leukocyte Esterase Urine 1+ (NEG); Nitrite Urine NEG (NEG); Specific Gravity - Urine >= 1.030 (1.005-1.025); UACC Culture Trigger YES; Urine Blood NEG (NEG); Urine Ketones NEG (NEG); Urine Protein NEG (NEG-TRACE)
[2021-02-14 18:27] LABS: Appearance Urine CLEAR; Color Urine YELLOW
[2021-02-14 18:45] LABS: Bacteria Urine TRACE /LPF
[2021-02-14 18:48] LABS: Squamous Epithelial Cell Urine 1+ /LPF
[2021-02-14] MEDS: QUEtiapine Fumarate 50 MG TABLET PO (22:12)
[2021-02-14 22:22] VITALS: BP 129/60; PULSE 101; TEMP 37.2; O2SAT 96
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
[2021-02-15] MEDS: Nicotine 14 MG PATCH.TD24 TRANSDERMA (10:35)
[2021-02-15] MEDS: Gabapentin 400 MG CAPSULE PO (10:36)
[2021-02-15] MEDS: LORazepam 0.5 MG TABLET PO (10:36)
[2021-02-15] MEDS: OXcarbazepine 300 MG TABLET PO (10:36)
[2021-02-15 10:38] VITALS: BP 115/58; PULSE 104; RESP 18; O2SAT 98
--- NOTE | 2021-02-15 14:14 | PC.NURSE ---
PT aware and ready for discharge, pt mood bright, future focused, PT denies SI/HI. PT reports decreased anxiety, and reports feeling comfortable using her coping skills. PT has follow up appointments made with PCP, therapist and psychiatrist. Belongings returned, pt ambulated off unit with steady gait.
== END 2021-02-15 13:20 | disposition home or self-care (01) | DRG 753 ==
LOC: HO.ED 02-08 14:15 → HO.PADLT16 02-08 15:52
PROVIDERS: Physician Assistant; Admitting Provider Social Worker; Emergency Provider Emergency Medicine; Visit Provider Social Worker
DX: F31.81 Bipolar II disorder (principal); R45.851 Suicidal ideations; F17.210 Nicotine dependence, cigarettes, uncomplicated; F43.12 Post-traumatic stress disorder, chronic; Z20.822 Contact with and (suspected) exposure to COVID-19; Z71.6 Tobacco abuse counseling; Z88.2 Allergy status to sulfonamides; Z79.899 Other long term (current) drug therapy
CPT/HCPCS: 36415; 80048; 80061; 80307; 81001; 81003; 81025; 82607; 82746; 83036; 85025; 87086; 87635; 97161; 99283

== ENCOUNTER 2021-03-13 17:48 | Emergency (ER) | payer OTHER, SELFPAY ==
[2021-03-13 18:01] VITALS: BP 145/88; PULSE 94; RESP 16; TEMP 36.2; O2SAT 98; BMI 48.7
--- NOTE | 2021-03-13 18:34 | ED.FEMALEGU ---
HPI - Female Genitourinary General Chief complaint: Urogenital-Female Stated complaint: yeast infection? Time Seen by Provider: 03/13/21 18:19 Source: patient Mode of arrival: ambulatory Limitations: no limitations History of Present Illness HPI Narrative: 20-year-old female with past medical history of bipolar, PTSD, recently treated with antibiotics for dental infection presents with 2 days of white sometimes clumpy and watery vaginal discharge. Does not have any concerns regarding sexually transmitted infection and does not report any pain or assault. States that she does not have any abnormal vaginal bleeding, does not have a concern regarding , and denies any other symptoms. MD elicited complaint: vaginal discharge Pertinent past history: other ( Recent antibiotic) Onset (ago): day(s) ( to) Location of symptoms: vaginal Severity: moderate Female Urogenital Radiation: Non-Radiating Severity scale (1-10): 5 Consistency: constant Vaginal discharge: white and thick/cheesy Vaginal bleeding: none Exacerbating factors: none Relieving factors: none Associated symptoms: denies other symptoms Treatment prior to arrival: none Sexual activity: Yes Patient : No Related Data Previous Rx's Medication Instructions Recorded gabapentin 400 mg PO TID #90 cap 02/15/21 lorazepam 0.5 mg PO TID #90 tab 02/15/21 oxcarbazepine 300 mg PO BID #60 tab 02/15/21 quetiapine 50 mg PO BEDTIME #30 tab 02/15/21 fluconazole [Diflucan] 150 mg PO Q3D #2 tab 03/13/21 Allergies Allergy/AdvReac Type Severity Reaction Status Date / Time sulfamethoxazole Allergy Intermediate HIVES WITH Verified 09/10/20 09:15 [From BACTRIM] HANDS AND FEET SWELLING trimethoprim [From BACTRIM] Allergy Intermediate HIVES WITH Verified 09/10/20 09:15 HANDS AND FEET SWELLING Sulfa (Sulfonamide Allergy Unknown Hives Verified 02/07/21 19:48 Antibiotics) Review of Systems Review of Systems: Constitutional: No Fever, No Chills ENT/Mouth: No sore throat, No Rhinorrhea Eyes: No Eye Pain, No Redness Cardiovascular: No Chest Pain, No SOB Respiratory: No Cough, No Sputum, No Wheezing Gastrointestinal: no Nausea, No Vomiting, No Diarrhea, no abdominal pain Genitourinary: positive abnormal vaginal discharge, No irregular bleeding, No Dysuria, No Urinary Frequency, no pelvic pain Musculoskeletal: No Myalgias Skin: No rash Neuro: No Weakness, No Headache Psych: No Anxiety/Panic, No Depression Heme/Lymph: No bruising, No Lymphadenopathy Endocrine: No Polyuria, No Polydipsia Yes all other systems are reviewed and are negative [facility], [facility] Past Medical History Attestation statement: The following information was validated with the patient. Source: old records reviewed Medical History Bipolar 1 disorder Depression Obesity PUD (peptic ulcer disease) Substance abuse TMJ (temporomandibular joint disorder) Social History Social History Household Members: None Housing: Apartment Do you presently have visiting nurse or other home services: Yes (Patient has support from [facility] team outreach) Patient Tobacco Use Status: Current everyday Tobacco user Tobacco use type: Cigarette Cigarette Packs Per Day: 1 Cigarettes Per Day: 20 Years Smoked: 5 e-Cigarette/Vaping Use: Never Used Second Hand Smoke Exposure: No Advance Directives: No Advance Directives Information Provided: Yes Patient : No service: No Sexual orientation: Straight/Heterosexual Physical Exam Vital Signs: Vital Signs: Last Vital Signs Temp 97.2 F 03/13/21 18:01 Pulse 94 03/13/21 18:01 Resp 16 03/13/21 18:01 BP 145/88 H 03/13/21 18:01 Pulse Ox 98 03/13/21 18:01 Body Mass Index 48.7 Appearance: Alert. Oriented X3. No acute distress. Eyes: Pupils equal, round and reactive to light. ENT: Pharynx normal. Neck: Normal inspection. Neck supple. CVS: Normal heart rate and rhythm. Pulses normal. Respiratory: No respiratory distress. Breath sounds normal. Abdomen: Soft and nontender. Skin: Skin warm and dry. Normal skin color. Normal skin turgor. Extremities: No lower extremity edema. Neuro: No motor deficit. No sensory deficit. : External Female Exam: normal external appearance and normal appearance of the urethra Speculum Exam - Vagina: normal appearance of the vagina and abnormal vaginal discharge white Bimanual exam- vagina & uterus: normal bimanual exam Course Course Course Narrative: 20-year-old female presents with white clumpy vaginal discharge for approximately 2 days. Has had recent antibiotic use for dental infection. Normal visual exam, white clumpy discharge noted from Introitus consistent with candidiasis. Patient respectfully declines full pelvic exam. Plan of care is to treat for vaginal yeast infection. Patient verbalized understanding of and agrees to plan of care discharge home. MDM - Female Genitourinary MDM Narrative Medical decision making narrative: Candidiasis Medical Records Attestation: I reviewed the patient's medical records. Discharge Plan Discharge Clinical Impression: Candidiasis of genitalia in female Patient Disposition: Home, Self-Care Instructions: Yeast Infection (ED) Additional Instructions: you were evaluated for a yeast infection after antibiotic use. Please take Diflucan in 3 days from now, you may repeat the dose 3 days after that. If symptoms persist please follow-up with primary care physician or OBGYN. Thank you for choosing this emergency department for evaluation. Please follow-up with primary care physician as needed. Return to the emergency department for any new, concerning, or worsening symptoms. Prescriptions: New fluconazole [Diflucan] 150 mg tablet 150 mg PO Q3D Qty: 2 RF: 0 No Action gabapentin 400 mg Capsule 400 mg PO TID Qty: 90 RF: 0 oxcarbazepine 300 mg Tablet 300 mg PO BID Qty: 60 RF: 0 lorazepam 0.5 mg Tablet 0.5 mg PO TID Qty: 90 RF: 0 quetiapine 50 mg Tablet 50 mg PO BEDTIME Qty: 30 RF: 0 Interventions: ED Discharge Assessment Last Done: 03/13/21 19:01 Discharge Date/Time: 03/13/21 19:03
[2021-03-13] MEDS: Fluconazole 150 MG TABLET PO (19:00)
== END 2021-03-13 19:03 | disposition home or self-care (01) ==
PROVIDERS: Emergency Provider Emergency Medicine
DX: B37.3 Candidiasis of vulva and vagina (principal); F17.210 Nicotine dependence, cigarettes, uncomplicated; E66.01 Morbid (severe) obesity due to excess calories
CPT/HCPCS: 99283

== ENCOUNTER → 2021-03-21 11:44 | Outpatient (BNVA) | payer OTHER, SELFPAY | PROVIDERS: Visit Provider Physician Assistant | DX: E66.01 Morbid (severe) obesity due to excess calories (principal); Z68.42 Body mass index [BMI] 45.0-49.9, adult | CPT/HCPCS: 99202 ==

== ENCOUNTER → 2021-03-31 08:27 | Outpatient (BNVA) | payer OTHER, SELFPAY | PROVIDERS: Visit Provider Physician Assistant ==

== ENCOUNTER 2021-04-10 14:18 | Outpatient (REF) | payer OTHER, SELFPAY ==
[2021-04-11 14:41] LABS: H Pylori Breath Test NOT DETECTED (NOT DETECTED)
== END 2021-04-10 14:19 | disposition home or self-care (01) ==
LOC: HO.LNP 14:18
PROVIDERS: Visit Provider Physician Assistant
DX: E66.01 Morbid (severe) obesity due to excess calories (principal); Z68.41 Body mass index [BMI] 40.0-44.9, adult; R06.02 Shortness of breath; F31.81 Bipolar II disorder; Z79.899 Other long term (current) drug therapy; Z71.3 Dietary counseling and surveillance
CPT/HCPCS: 83013; 99211; 99212

== ENCOUNTER 2021-04-11 08:14 | Outpatient (REF) | payer OTHER, SELFPAY ==
[2021-04-11 17:37] LABS: Hematocrit 41.6 % (37-47); Hemoglobin 13.8 g/dl (12.0-16.0); Mean Corpuscular HGB Conc 33.2 g/dl (31.0-35.0); Mean Corpuscular Hemoglobin 28.5 pg (27.0-33.0); Mean Corpuscular Volume 85.8 fL (80-98); Mean Platelet Volume 9.4 fL (9.4-12.3); Platelet Count 354 X10*3/uL (160-400); Red Blood Count 4.85 X10*6/uL (4.20-5.50)
[2021-04-11 18:16] LABS: HCG Quantitative < 2 mIU/mL
[2021-04-12 04:37] LABS: Syphilis Screen Nonreactive (Nonreactive)
[2021-04-12 04:54] LABS: HBc Num1 0.12 S/CO (0.00-0.79); Hepatitis B Core Antibody Nonreactive (Nonreactive); ~HepC Num1 0.16 S/CO (0.00-0.79); ~Hepatitis C Antibody Nonreactive (Nonreactive)
[2021-04-12 04:59] LABS: HIV AB/AG Nonreactive (Nonreactive); HIV Num 1 0.06 S/CO (0.00-0.99)
[2021-04-12 06:13] LABS: CT PCR NOT DETECTED (Not Detect.); NG PCR NOT DETECTED (Not Detect.)
[2021-04-12 09:37] LABS: BV Int Neg Control Negative (Negative); BV Int Pos Control Positive (Positive)
[2021-04-12 17:01] LABS: DHEA Sulfate 282 mcg/dL (18-391)
[2021-04-12 18:41] LABS: Prolactin 6.6 ng/mL
[2021-04-16 16:20] LABS: Testosterone, Free 4.5 pg/mL (0.1-6.4); Testosterone, Total 32 ng/dL (2-45)
== END 2021-04-11 08:15 | disposition home or self-care (01) ==
LOC: HO.LAB 08:14
PROVIDERS: Advanced Practice Midwife; Visit Provider Dietitian, Registered
DX: L68.0 Hirsutism (principal); L70.9 Acne, unspecified; Z20.2 Contact with and (suspected) exposure to infections with a predominantly sexual mode of transmission; N89.8 Other specified noninflammatory disorders of vagina; N92.6 Irregular menstruation, unspecified; Z71.3 Dietary counseling and surveillance
CPT/HCPCS: 36415; 81025; 82627; 83498; 84146; 84402; 84403; 84443; 84702; 85027; 86704; 86780; 86803; 87389; 87480; 87491; 87510; 87591; 87660; 97802; 99212

== ENCOUNTER → 2021-04-19 15:00 | Outpatient (BNVA) | payer OTHER, SELFPAY | PROVIDERS: Visit Provider Advanced Practice Midwife ==

== ENCOUNTER → 2021-05-11 08:07 | Outpatient (BNVA) | payer OTHER, SELFPAY | PROVIDERS: PCP Pediatrics; Visit Provider Dietitian, Registered ==

== ENCOUNTER 2021-05-12 15:00 | Outpatient (RCR) | payer OTHER, SELFPAY | END 2021-06-21 15:26 | disposition home or self-care (01) | LOC: HO.PT 15:00 | PROVIDERS: Visit Provider Physician Assistant | DX: M22.42 Chondromalacia patellae, left knee (principal); M76.52 Patellar tendinitis, left knee | CPT/HCPCS: 97110; 97140; 97162 ==

== ENCOUNTER → 2021-05-22 08:34 | Outpatient (BNVA) | payer OTHER, SELFPAY | PROVIDERS: PCP Pediatrics; Referring Provider Surgery; Visit Provider Dietitian, Registered ==

== ENCOUNTER 2021-06-03 12:32 | Emergency (ER) | payer OTHER, SELFPAY ==
[2021-06-03 12:42] VITALS: BP 116/68; PULSE 97; RESP 18; TEMP 36.6; O2SAT 97; BMI 43.4
--- NOTE | 2021-06-03 16:16 | ED_ITS ---
HPI - General Adult General Chief complaint: General Medical Stated complaint: pins & needles feet Time Seen by Provider: 06/03/21 16:16 Source: patient Mode of arrival: ambulatory Limitations: no limitations History of Present Illness HPI narrative: 20-year-old female with past medical history of anxiety, major depressive disorder, bipolar disorder, morbid obesity is here today for complaining of feet tingling. Patient reports that she feels like there is pins and needles to bilateral feet. Patient reports that she experienced something like this before but usually went away. Today she reports that it is not getting better. Patient does not not have a history of diabetes. Reports that she previously took gabapentin 400 mg daily and lorazepam 0.5 mg daily for her anxiety and stopped that about a month ago. Patient does have a family history of diabetes in her mother. Patient denies any other symptoms. Related Data Previous Rx's Medication Instructions Recorded gabapentin 400 mg capsule 400 mg PO TID #90 cap 02/15/21 lorazepam 0.5 mg tablet 0.5 mg PO TID #90 tab 02/15/21 oxcarbazepine 300 mg tablet 300 mg PO BID #60 tab 02/15/21 quetiapine 50 mg tablet 50 mg PO BEDTIME #30 tab 02/15/21 fluconazole 150 mg tablet 150 mg PO Q3D #2 tab 03/13/21 (Diflucan) metronidazole 500 mg tablet 2,000 mg PO ONCE 1 Days #4 tab 04/13/21 gabapentin 300 mg capsule 300 mg PO BEDTIME #10 cap 06/03/21 lorazepam 0.5 mg tablet 0.5 mg PO DAILY PRN #7 tab 06/03/21 Allergies Allergy/AdvReac Type Severity Reaction Status Date / Time Sulfa (Sulfonamide Allergy Intermediate Hives Verified 06/03/21 12:42 Antibiotics) sulfamethoxazole Allergy Intermediate HIVES WITH Verified 06/03/21 12:42 [From BACTRIM] HANDS AND FEET SWELLING trimethoprim [From BACTRIM] Allergy Intermediate HIVES WITH Verified 06/03/21 12:42 HANDS AND FEET SWELLING Review of Systems Review of Systems: Constitutional : No Weight loss, No Fever, No Chills, No Night Sweats, No Fatigue, No Malaise ENT/Mouth : No Hearing loss, No Ear Pain, No Nasal Congestion, No Sinus Pain, No Hoarseness, No sore throat, No Rhinorrhea, No Swallowing Difficulty Eyes: No Eye Pain, No Swelling, No Redness, No Foreign Body, No Discharge, No Vision Changes Cardiovascular : No Chest Pain, No SOB, No Dyspnea on Exertion, No Orthopnea, No Edema, No Palpitations Respiratory : No Cough, No Sputum, No Wheezing, No Smoke Exposure, No Dyspnea Gastrointestinal : No Nausea, No Vomiting, No Diarrhea, No Constipation, No abdominal Pain, No Hematochezia, No Melena Genitourinary : no irregular bleeding, No Dysuria, No Urinary Frequency, No Hematuria, No Urinary Incontinence, No Urgency, No Flank Pain, No Urinary Flow Changes, No Hesitancy Musculoskeletal : No joint pain, No Myalgias, No Joint Swelling Skin : No Skin Lesions, No rash Neuro : No Weakness, No Numbness, No Paresthesias, No Loss of Consciousness, No Dizziness, No Headache Psych : No Anxiety/Panic, No Depression, No SI/HI/AH/VH, No Social Issues, Yes all other systems are reviewed and are negative [facility] Past Medical History Medical History Anxiety Bipolar 1 disorder BMI 45.0-49.9, adult Cyst Depression Disc disorder GERD (gastroesophageal reflux disease) Heavy smoker (more than 20 cigarettes per day) Hiatal hernia Housing or economic circumstances IBS (irritable bowel syndrome) Major depressive disorder Migraines Morbid obesity Obesity Panic disorder PUD (peptic ulcer disease) Substance abuse TMJ (temporomandibular joint disorder) Vertigo Surgical History Hx of appendectomy Hx of colonoscopy [place] teeth extracted Family History Family History Mother Diabetes Multiple sclerosis Mental health problem Fibromyalgia Father Mental health problem Brother Mental health problem Brother Mental health problem Sister Mental health problem Sister No problems noted. Sister Mental health problem Sister Mental health problem Sister Mental health problem Social History Social History Household Members: None Housing: Apartment Do you presently have visiting nurse or other home services: Yes (Patient has support from [facility] team outreach) Alcohol intake: current Alcohol intake frequency: holidays/special occasions only Alcohol type: wine Patient Tobacco Use Status: Current everyday Tobacco user Tobacco use type: Cigarette Cigarette Packs Per Day: 1 Cigarettes Per Day: 20 Years Smoked: 5 e-Cigarette/Vaping Use: Never Used Second Hand Smoke Exposure: No Advance Directives: No Advance Directives Information Provided: Yes Patient : No service: No Sexual orientation: Straight/Heterosexual Physical Exam Vital Signs: Vital Signs: Last Vital Signs Temp 97.9 F 06/03/21 12:42 Pulse 97 06/03/21 12:42 Resp 18 06/03/21 12:42 BP 116/68 06/03/21 12:42 Pulse Ox 97 06/03/21 12:42 Body Mass Index 43.4 Const: General: healthy appearing, no acute distress and well developed Nutritional Appearance: well nourished Orientation/consciousness: patient oriented x3 HENMT: Head: Yes normal to inspection, Yes normocephalic and Yes atraumatic Neck: Neck: Yes normal visual inspection, Yes full ROM and Yes trachea midline Thyroid: Thyroid normal Resp: Effort & Inspection: normal respiratory effort and able to speak in complete sentences Auscultation: clear to auscultation bilaterally Cardio: Rate: regular rate Rhythm: regular rhythm GI: Inspection: Yes normal to inspection and No distended Palpation (GI): Soft to palpation, nontender, no guarding and No hepatosplenomegaly present Auscultation: normal bowel sounds Skin: General skin exam: elasticity normal, turgor normal and dry skin Neuro: General: patient oriented x3 Extrem: General: Yes normal to inspection, Yes full ROM, Yes capillary refill normal, Yes no joint enlargement, Yes no clubbing, cyanosis or edema, Yes no pedal edema and Yes no calf tenderness Course Course Course Narrative: 20-year-old female with past medical history of PTSD, anxiety, depression, panic disorder, bipolar disorder is here today for complaints of pins and needles to bilateral feet. Patient reports that she used to take gabapentin 400 mg and lorazepam 0.5 mg for her anxiety. She reports that she s top that 1 month ago. Patient reports of similar symptoms before however she reports that she was able to eventually feel better. Patient denies any neurological symptoms. Exam negative for any neurological findings. Positive pedal pulses to bilateral extremities negative Adeola's sign to bilateral lower extremities. Will do BMP and check magnesium level. We will give her lorazepam 0.5 mg and gabapentin 300 mg. Reevaluation(s) Reevaluation #1: Patient reports that she is feeling little better after gabapentin and lorazepam. Her lab work is negative for any acute findings. She still continue to have mild feelings of pins and needle like in her feet. Denies any low back pain, urinary incontinence or fecal incontinence. Exam negative for DVT, good pedal pulses and popliteal pulses. Will be sending patient home to follow-up with her PCP. I will send her home with few days of gabapentin and lorazepam. Patient was encouraged to return if she will have any worsening symptoms or experience any additional concerning symptoms Medical Decision Making Lab Data Result diagrams: 06/03/21 17:57 Labs: Lab Results 06/03/21 Range/Units 17:57 Sodium 139 (135-145) mmol/L Potassium 4.0 (3.3-5.1) mmol/L Chloride 105 (96-108) mmol/L Carbon Dioxide 24 (22-29) mmol/L Anion Gap 14 (12-20) BUN 8 L (9-16) mg/dL Creatinine 0.73 (0.5-1.4) mg/dL Estim Creat Clear Calc 134.3 Estimated GFR > 60 Random Glucose 82 (60-115) mg/dL Calcium 9.3 (8.4-10.2) mg/dL Magnesium 2.0 (1.6-2.6) mg/dL Discharge Plan Discharge Clinical Impression: Panic disorder, Anxiety Patient Disposition: Home, Self-Care Instructions: Paresthesia (ED), Anxiety (ED) Additional Instructions: You were seen here today for tingling to your feet. Your lab work is negative for any acute findings. Your blood sugar was normal. Your magnesium was also normal. Please follow-up with your primary care doctor on Saturday. I am giving you script for gabapentin and lorazepam. Please take this with caution. You may return to emergency department if your symptoms will get worse or if you will experience any additional concerning symptoms. Prescriptions: New gabapentin 300 mg capsule 300 mg PO BEDTIME Qty: 10 RF: 0 lorazepam 0.5 mg tablet 0.5 mg PO DAILY PRN (Reason: anxiety) Qty: 7 RF: 0 No Action metronidazole 500 mg tablet 2,000 mg PO ONCE 1 Days Qty: 4 RF: 0 gabapentin 400 mg Capsule 400 mg PO TID Qty: 90 RF: 0 oxcarbazepine 300 mg Tablet 300 mg PO BID Qty: 60 RF: 0 lorazepam 0.5 mg Tablet 0.5 mg PO TID Qty: 90 RF: 0 quetiapine 50 mg Tablet 50 mg PO BEDTIME Qty: 30 RF: 0 fluconazole [Diflucan] 150 mg tablet 150 mg PO Q3D Qty: 2 RF: 0 Interventions: ED Discharge Assessment Last Done: 06/03/21 19:56 Discharge Date/Time: 06/03/21 19:57
[2021-06-03] MEDS: Gabapentin 300 MG CAPSULE PO (17:01)
[2021-06-03] MEDS: LORazepam 0.5 MG TABLET PO (17:01)
[2021-06-03 18:20] LABS: Anion Gap 14 (12-20); Blood Urea Nitrogen 8 mg/dL (9-16); Calcium 9.3 mg/dL (8.4-10.2); Carbon Dioxide 24 mmol/L (22-29); Chloride 105 mmol/L (96-108); Creatinine Clr Calc Pharmacy 134.3; Estimated Glomerular Filt Rate > 60; Glucose Random 82 mg/dL (60-115); Sodium 139 mmol/L (135-145)
== END 2021-06-03 19:57 | disposition home or self-care (01) ==
PROVIDERS: Nurse Practitioner Family; Emergency Provider Emergency Medicine Emergency Medical Services
DX: R20.2 Paresthesia of skin (principal); F33.1 Major depressive disorder, recurrent, moderate; F41.1 Generalized anxiety disorder; F43.0 Acute stress reaction; Z79.899 Other long term (current) drug therapy; F17.210 Nicotine dependence, cigarettes, uncomplicated; Z71.6 Tobacco abuse counseling
CPT/HCPCS: 36415; 80048; 83735; 99283; 99284

== ENCOUNTER → 2021-06-16 14:57 | Outpatient (BNVA) | payer OTHER, SELFPAY | PROVIDERS: PCP Pediatrics; Visit Provider Physician Assistant | DX: E66.01 Morbid (severe) obesity due to excess calories (principal); Z68.41 Body mass index [BMI] 40.0-44.9, adult | CPT/HCPCS: 99212 ==

== ENCOUNTER 2021-07-05 09:45 | Outpatient (REF) | payer OTHER, SELFPAY ==
--- NOTE | ~2021-07-05 | US_ITS ---
EXAMINATION: US COMPLETE ABDOMEN WITH LIVER ELASTOGRAPHY CLINICAL INFORMATION: Obesity COMPARISON: Previous abdominal ultrasound January [address] of the abdomen and pelvis December 2018 TECHNIQUE: Real-time imaging of the abdominal viscera. Noninvasive ultrasound liver fibrosis assessment is performed using Abena ElastPQ point quantification shear wave elastography (pSWE) with a C5-2 MHz transducer. Multiple elastography samples are obtained. FINDINGS: PANCREAS: The visualized pancreatic head and body are normal in appearance. The remainder of the pancreas is obscured from visualization by the overlying bowel gas. ABDOMINAL AORTA: The proximal, middle, and distal aortic segments are normal in caliber. INFERIOR VENA CAVA: Visualized portions are normal. LIVER: Normal. The liver demonstrates normal size, contour and echogenicity. No focal lesion or intrahepatic biliary duct dilatation. The right lobe measures 13 cm in length. The left lobe measures 10 cm in length. Portal flow is normal/hepatopedal Shear wave liver elastography median stiffness is 1.3 m/s (reference: normal median stiffness is 1.3 m/s or less). IQR/median stiffness to assess sampling precision is 0. 05 (reference: good quality data set is IQR/median stiffness of 0.15 or less). GALLBLADDER: Normal. The gallbladder is physiologically distended without evidence of stones, sludge, polyps, wall thickening or pericholecystic fluid. COMMON BILE DUCT: Normal in caliber measuring 0.3 cm in diameter. RIGHT KIDNEY: Normal. No hydronephrosis. No renal calculi or focal parenchymal lesions. The kidney measures 11 cm in maximum dimension. LEFT KIDNEY: Normal. No hydronephrosis. No renal calculi or focal parenchymal lesions. The kidney measures 10 cm in maximum dimension. SPLEEN: Normal. The spleen measures 9 cm in maximum dimension. FREE FLUID: None. US/US abdomen comp w elastography IMPRESSION: 1. Impression: Limited visualization of the tail the pancreas. Otherwise unremarkable exam. 2. Liver elastography: Adequate liver sampling. Normal liver stiffness. REFERENCE: Society of Radiologists in Ultrasound Liver Stiffness Thresholds (2019): LIVER STIFFNESS THRESHOLDS: *Liver Stiffness equal or less than 1.3 m/s: High probability of being normal. *Liver Stiffness less than 1.7 m/s: In the absence of other known clinical signs, rules out compensated advanced chronic liver disease. *Liver Stiffness 1.7-2.1 m/s: Suggestive of compensated advanced chronic liver disease but need further test for confirmation. *Liver Stiffness over 2.1 m/s: Rules in compensated advanced chronic liver disease. *Liver Stiffness over 2.4 m/s: Suggestive of clinically significant portal hypertension. QUALITY OF DATA SET: *IQR/Median value equal or less than 0.15 implies a quality data set. *IQR/Median value over 0.15 implies a poor quality data set. SIGNIFICANT CHANGE FROM PRIOR EXAM: Significant change if liver stiffness measurement is 10% or greater from prior exam. OTHER CONSIDERATIONS: The stage of liver fibrosis may be overestimated in the setting of acute hepatitis, liver inflammation, elevated liver function tests, hepatic vascular congestion, obstructive cholestasis, non-fasting state, and infiltrative diseases such as amyloidosis and lymphoma. In some patients with NAFLD, the liver stiffness thresholds for compensated advanced chronic liver disease may be lower. In causes other than viral hepatitis and NAFLD, liver stiffness thresholds are not well established.
--- NOTE | ~2021-07-05 | XR_ITS ---
EXAMINATION: XR CHEST CLINICAL INFORMATION: Preoperative chest x-ray COMPARISON: Chest x-ray on 02/04/2019 TECHNIQUE: 2 views of the chest were obtained. FINDINGS: No significant abnormality is noted involving the heart, lungs, mediastinum, bony thorax or soft tissues. XR/XR chest 2V IMPRESSION: Unremarkable examination.
--- NOTE | ~2021-07-05 | FL_ITS ---
EXAMINATION: XR GI SERIES CLINICAL INFORMATION: Obesity. Preop. COMPARISON: None TECHNIQUE: Upper GI was performed using thin and thick barium and effervescent granules. FINDINGS: Esophageal motility is normal. No gastroesophageal reflux or hernia is seen. The stomach and duodenum are normal. No fold thickening, mass, ulcer or stricture is seen. FLUOROSCOPY TIME: 0.6 minutes DOSE AREA PRODUCT: 7.4 nunez per centimeter squared. 17 saved fluoroscopic images. FL/FL upper GI series IMPRESSION: Unremarkable examination.
== END 2021-07-05 09:46 | disposition home or self-care (01) ==
LOC: HO.US 09:45
PROVIDERS: Visit Provider Physician Assistant
DX: Z01.818 Encounter for other preprocedural examination (principal); E66.01 Morbid (severe) obesity due to excess calories; K21.9 Gastro-esophageal reflux disease without esophagitis; R06.02 Shortness of breath; F31.81 Bipolar II disorder
CPT/HCPCS: 71046; 74240; 76705; 76981

== ENCOUNTER → 2021-07-14 08:17 | Outpatient (BNVA) | payer OTHER, SELFPAY | PROVIDERS: PCP Pediatrics; Visit Provider Dietitian, Registered | DX: E66.9 Obesity, unspecified (principal) | CPT/HCPCS: 97803 ==

== ENCOUNTER 2021-08-02 13:25 | Emergency (ER) | payer OTHER, SELFPAY ==
[2021-08-02 13:31] VITALS: BP 130/70; PULSE 100
--- NOTE | 2021-08-02 13:40 | ED.OVERDOSE ---
HPI - Overdose General Chief Complaint: Overdose Stated Complaint: HEROIN OVERDOSE, 4-8 MG NARCAN Time Seen by Provider: 08/02/21 13:36 Source: patient Mode of arrival: ambulatory Limitations: no limitations History of Present Illness HPI Narrative: Patient comes to the emergency room by EMS. Earlier today patient had overdose. Patient states that she used 1 bag of heroin, initially she was doing well, then the next thing she remembers is Police Department waking her up with Narcan. EMS reports that patient received 4-8 mg of intranasal Narcan, they had to insert an oral airway and back care. Patient shortly after woke up with good response to Narcan. Patient states she has accidentally overdosed in the past, approximately 1 year ago. Patient denies suicidal or homicidal ideation, it was accidental. Patient denies making any other drugs, states she did not drink alcohol. At this moment, patient complaining of a mild headache and has nausea, patient states she does not want any medication for the headache Otherwise feeling well. MD complaint: accidental overdose Related Data Home Medications Medication Instructions Recorded Confirmed albuterol sulfate 90 mcg/actuation 2 puff INHALATION Q6H PRN 06/16/21 aerosol inhaler Previous Rx's Medication Instructions Recorded gabapentin 400 mg capsule 400 mg PO TID #90 cap 02/15/21 lorazepam 0.5 mg tablet 0.5 mg PO TID #90 tab 02/15/21 oxcarbazepine 300 mg tablet 300 mg PO BID #60 tab 02/15/21 quetiapine 50 mg tablet 50 mg PO BEDTIME #30 tab 02/15/21 fluconazole 150 mg tablet 150 mg PO Q3D #2 tab 03/13/21 (Diflucan) metronidazole 500 mg tablet 2,000 mg PO ONCE 1 Days #4 tab 04/13/21 gabapentin 300 mg capsule 300 mg PO BEDTIME #10 cap 06/03/21 lorazepam 0.5 mg tablet 0.5 mg PO DAILY PRN #7 tab 06/03/21 Allergies Allergy/AdvReac Type Severity Reaction Status Date / Time Sulfa (Sulfonamide Allergy Intermediate Hives Verified 06/16/21 15:09 Antibiotics) sulfamethoxazole Allergy Intermediate HIVES WITH Verified 06/16/21 15:09 [From BACTRIM] HANDS AND FEET SWELLING trimethoprim [From BACTRIM] Allergy Intermediate HIVES WITH Verified 06/16/21 15:09 HANDS AND FEET SWELLING Review of Systems Review of Systems: Constitutional : No Weight loss, No Fever, No Chills, No Night Sweats, No Fatigue, No Malaise ENT/Mouth : No Hearing loss, No Ear Pain, No Nasal Congestion, No Sinus Pain, No Hoarseness, No sore throat, No Rhinorrhea, No Swallowing Difficulty Eyes: No Eye Pain, No Swelling, No Redness, No Foreign Body, No Discharge, No Vision Changes Cardiovascular : No Chest Pain, No SOB, No Dyspnea on Exertion, No Orthopnea, No Edema, No Palpitations Respiratory : No Cough, No Sputum, No Wheezing, No Smoke Exposure, No Dyspnea Gastrointestinal : Complaining of Nausea, No Vomiting, No Diarrhea, No Constipation, No abdominal Pain, No Hematochezia, No Melena Genitourinary : no irregular bleeding, No Dysuria, No Urinary Frequency, No Hematuria, No Urinary Incontinence, No Urgency, No Flank Pain, No Urinary Flow Changes, No Hesitancy Musculoskeletal : No joint pain, No Myalgias, No Joint Swelling Skin : No Skin Lesions, No rash Neuro : No Weakness, No Numbness, No Paresthesias, No Loss of Consciousness, No Dizziness, complaining of mild Headache Psych : No Anxiety/Panic, No Depression, No SI/HI/AH/VH, admits to using heroin Heme/Lymph: No Bruising, No Bleeding,No Lymphadenopathy Endocrine : No Polyuria, No Polydipsia, No Temperature Intolerance PMFSH Past Medical History Medical History Anxiety Bipolar 1 disorder BMI 45.0-49.9, adult Cyst Depression Disc disorder GERD (gastroesophageal reflux disease) Heavy smoker (more than 20 cigarettes per day) Hiatal hernia Housing or economic circumstances IBS (irritable bowel syndrome) Major depressive disorder Migraines Morbid obesity Obesity Panic disorder PUD (peptic ulcer disease) Substance abuse TMJ (temporomandibular joint disorder) Vertigo Surgical History Hx of appendectomy Hx of colonoscopy [place] teeth extracted Family History Family History Mother Diabetes Multiple sclerosis Mental health problem Fibromyalgia Father Mental health problem Brother Mental health problem Brother Mental health problem Sister Mental health problem Sister No problems noted. Sister Mental health problem Sister Mental health problem Sister Mental health problem Social History Social History Household Members: None Housing: Apartment Do you presently have visiting nurse or other home services: Yes (Patient has support from [facility] team outreach) Alcohol intake: current Alcohol intake frequency: holidays/special occasions only Alcohol type: wine Patient Tobacco Use Status: Current everyday Tobacco user Tobacco use type: Cigarette Cigarette Packs Per Day: 1 Cigarettes Per Day: 20 Years Smoked: 5 e-Cigarette/Vaping Use: Never Used Second Hand Smoke Exposure: No Advance Directives: No Advance Directives Information Provided: No Patient : No service: No Sexual orientation: Straight/Heterosexual Physical Exam Vital Signs: Vital Signs: Last Vital Signs Temp 99.1 F 08/02/21 13:45 Pulse 88 08/02/21 13:45 Resp 16 08/02/21 13:45 BP 99/48 L 08/02/21 13:45 Pulse Ox 97 08/02/21 13:45 Body Mass Index 44.1 Const: Other: Appearance: Alert. Oriented X3. No acute distress. Eyes: Pupils equal, round and reactive to light. ENT: Pharynx normal. Neck: Normal inspection. Neck supple. No lymph nodes noted. No crepitus CVS: Normal heart rate and rhythm. Pulses normal. Normal S1 and S2 Respiratory: No respiratory distress. Breath sounds normal. No Wheezing. No rales Abdomen: Soft and nontender. No rigidity. No distention. good BS x4 Skin: Skin warm and dry. Normal skin color. Normal skin turgor. Extremities: No lower extremity edema. No Lacerations. No Rash Neuro: Oriented X 3. No motor deficit. No sensory deficit. Moving all extermities. No slurred speech. Cranial nerves 2-12 grossly intact Psych: Calm, cooperative, speaking full sentences Course Course Course Narrative: Although patient overdosed today and could have , patient reported to the assistant softball coach that she does not have an addiction problem and declined any assistance for recovery. Patient has been here 2-1/2 hours, alert, awake, oxygen saturation 98% on room air. Patient declined any Discharge Plan Discharge Clinical Impression: Accidental heroin overdose Qualifiers: Encounter type: initial encounter Qualified Code(s): T40.1X1A - Poisoning by heroin, accidental (unintentional), initial encounter Patient Disposition: Home, Self-Care Instructions: Adult Overdose (ED) Additional Instructions: Please follow-up with your primary care physician tomorrow. If you have any worsening or new symptoms, please return to the emergency room or call 911 Prescriptions: No Action metronidazole 500 mg tablet 2,000 mg PO ONCE 1 Days Qty: 4 RF: 0 gabapentin 400 mg Capsule 400 mg PO TID Qty: 90 RF: 0 oxcarbazepine 300 mg Tablet 300 mg PO BID Qty: 60 RF: 0 lorazepam 0.5 mg Tablet 0.5 mg PO TID Qty: 90 RF: 0 quetiapine 50 mg Tablet 50 mg PO BEDTIME Qty: 30 RF: 0 fluconazole [Diflucan] 150 mg tablet 150 mg PO Q3D Qty: 2 RF: 0 gabapentin 300 mg capsule 300 mg PO BEDTIME Qty: 10 RF: 0 lorazepam 0.5 mg tablet 0.5 mg PO DAILY PRN (Reason: anxiety) Qty: 7 RF: 0 albuterol sulfate 90 mcg/actuation HFA aerosol inhaler 2 puff inhalation Q6H PRNRF: 0
[2021-08-02 13:45] VITALS: BP 99/48; PULSE 88; RESP 16; TEMP 37.3; O2SAT 97; BMI 44.1
--- NOTE | 2021-08-02 13:53 | MHC.RECOVSUP ---
? Reason for consult:Recovery support o Current location:[address] [place] [address] o Identified substance use concern:Heroine - Overdosel - Support ? Intervention: o Community resources provided o Harm reduction discussion ? Plan: o Referral to CCC o Patient to follow up with [facility] after discharge ? Additional information: Patient overdosed, spoke to patient re:harm reduction, Mat, and detox. Patient refused. Gave patient community resources and notified Dr. Tiwari.
[2021-08-02] MEDS: Ondansetron ODT 4 MG TAB.RAPDIS TRANSLINGU (14:22)
--- NOTE | 2021-08-02 14:52 | MHC.RECOVSUP ---
Recovery Support note: Patient is a 21 year old Bahraini speaking female who presented to [facility] via EMS after an accidental overdose. This copywriter met with patient to offer support and resources. Patient declined SUDE assessment and reports no questions at this time regarding resources provided by [facility]. Encouraged patient to inform staff if she would like to discuss her substance use with staff. Patient acknowledged.
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
== END 2021-08-02 17:02 | disposition home or self-care (01) ==
PROVIDERS: Emergency Provider Emergency Medicine; PCP Nurse Practitioner Family
DX: T40.1X1A Poisoning by heroin, accidental (unintentional), initial encounter (principal); F17.210 Nicotine dependence, cigarettes, uncomplicated; Z71.6 Tobacco abuse counseling; Z79.899 Other long term (current) drug therapy; Z71.51 Drug abuse counseling and surveillance of drug abuser
CPT/HCPCS: 99283

== ENCOUNTER → 2022-11-08 12:57 | Outpatient (BNVA) | payer MEDICAID, SELFPAY | PROVIDERS: PCP Internal Medicine; Visit Provider Physician Assistant Surgical | DX: Z13.89 Encounter for screening for other disorder (principal) ==

== ENCOUNTER → 2022-12-05 09:29 | Outpatient (BNVA) | payer MEDICAID, SELFPAY | PROVIDERS: PCP Internal Medicine; Referring Provider Internal Medicine; Visit Provider Physician Assistant Surgical | DX: E66.01 Morbid (severe) obesity due to excess calories (principal); Z68.43 Body mass index [BMI] 50.0-59.9, adult | CPT/HCPCS: 99212 ==

== ENCOUNTER → 2022-12-10 09:11 | Outpatient (BNVA) | payer OTHER, SELFPAY | PROVIDERS: PCP Internal Medicine; Referring Provider Internal Medicine; Visit Provider Physician Assistant Surgical | DX: Z11.0 Encounter for screening for intestinal infectious diseases (principal) | CPT/HCPCS: 99211 ==

== ENCOUNTER 2022-12-12 15:57 | Outpatient (REF) | payer OTHER, SELFPAY ==
[2022-12-13 11:59] LABS: H Pylori Breath Test Negative (Negative)
== END 2022-12-12 15:58 | disposition home or self-care (01) ==
LOC: HO.LNP 15:57
PROVIDERS: Visit Provider Physician Assistant Surgical
DX: E66.01 Morbid (severe) obesity due to excess calories (principal)
CPT/HCPCS: 83013

== ENCOUNTER 2024-11-23 10:30 | Outpatient (RCR) | payer OTHER, SELFPAY ==
[2024-11-23 10:34] VITALS: BMI 59.7
[2024-11-23 10:35] VITALS: BP 119/81; PULSE 97; TEMP 36.1
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
--- NOTE | 2024-11-24 07:52 | HO.PHP ---
PHP admin, Aruna, informed the team that Ana would not be in attendance to program today due to having no transportation to program and is still working on her PT1.
--- NOTE | 2024-11-24 09:41 | PC.NURSE ---
Dr. Watters is aware that patient stated she is on both Abilify 15 mg daily last filled 09/16/24 #30 and Risperdal 0.5 mg TID last filled 10/27/24 # 30.
--- NOTE | 2024-11-25 08:45 | HO.PHP ---
PHP staff member, spoke with Ana, who noted that she would not be in attendance to program today due to being in physical pain due to her fibromyalgia. PHP staff member explored if she will be going to the doctors today to address this. Ana disclosed that she is going to call her [facility] worker to see if she is able to bring her to the appointment and if unable to she will try to go later in the day. Ana then voiced that she is still working on getting her PT1 information changed since she is at a different address. Ana mentioned that she was unable to change it with [employer] and stated that it needs to be changed by [facility] and [employer]. PHP staff member was receptive. PHP staff member assessed for safety. Ana reported no concerns around safety including SI, plan or intent. PHP staff member informed Ana that we would have to be discharging her due to issues with her health and transporation. PHP staff member encouraged Ana to address her health and transportation at this time and call Aruna as soon as she addresses those needs so she is able to get everything she can from the program. Ana was crying and hung up the phone. Uncertain to if she will be contacting Aruna to return to program once she addresses those issues.
== END 2024-11-23 23:59 | disposition home or self-care (01) ==
LOC: HO.PHPA 10:30
PROVIDERS: Visit Provider Psychiatry & Neurology Psychiatry
DX: F43.10 Post-traumatic stress disorder, unspecified (principal); F41.1 Generalized anxiety disorder; F33.1 Major depressive disorder, recurrent, moderate; F81.9 Developmental disorder of scholastic skills, unspecified; Z79.899 Other long term (current) drug therapy
CPT/HCPCS: 90791; 90853

== ENCOUNTER → 2024-11-23 10:30 | Outpatient (BNV) | payer OTHER, SELFPAY | PROVIDERS: Visit Provider Psychiatry & Neurology Psychiatry | DX: F33.1 Major depressive disorder, recurrent, moderate (principal); F41.1 Generalized anxiety disorder; F43.11 Post-traumatic stress disorder, acute; F81.9 Developmental disorder of scholastic skills, unspecified | CPT/HCPCS: 90834 ==